=== PATIENT | male | born 1990 | race Caucasian/White ===

== ENCOUNTER 2019-10-20 21:33 | Emergency (ER) | payer MEDICAID ==
[~2019-10-20] VITALS: Ht 182.9 cm; Wt 88.6 kg
[2019-10-20 21:45] VITALS: Ht 182.9 cm; Wt 88.6 kg
[2019-10-20 22:51] VITALS: BP 141/71
== END 2019-10-20 22:51 | disposition home or self-care (01) ==
LOC: ED 21:33
DX: Z13.89 Encounter for screening for other disorder (principal)